=== PATIENT | female | born 1940 | race Caucasian/White ===

== ENCOUNTER → 2019-03-15 | Outpatient (CLI) | payer MEDICARE, OTHER | END | disposition home or self-care (01) | LOC: PLD 12:30 → LAB SHORT 12:30 | DX: L98.9 Disorder of the skin and subcutaneous tissue, unspecified (principal); B35.1 Tinea unguium | CPT/HCPCS: 88305 ==

== ENCOUNTER → 2019-04-19 | Outpatient (CLI) | payer MEDICARE, OTHER | END | disposition home or self-care (01) | LOC: PLD 12:10 → LAB SHORT 12:10 | DX: C44.622 Squamous cell carcinoma of skin of right upper limb, including shoulder (principal) | CPT/HCPCS: 88305 ==

== ENCOUNTER → 2019-05-07 | Outpatient (CLI) | payer MEDICARE, OTHER | END | disposition home or self-care (01) | LOC: PLD 08:10 → LAB SHORT 08:10 | DX: C44.622 Squamous cell carcinoma of skin of right upper limb, including shoulder (principal) | CPT/HCPCS: 88305 ==

== ENCOUNTER → 2019-06-20 | Outpatient (CLI) | payer MEDICARE, OTHER | LOC: LAB 14:30 → LAB SHORT 14:30 | DX: B35.1 Tinea unguium (principal) | CPT/HCPCS: 87102 ==

== ENCOUNTER 2019-08-29 10:51 | Day surgery (SDC) | payer MEDICARE, OTHER ==
[~2019-08-29] VITALS: Ht 157.5 cm; Wt 74.0 kg
[~2019-08-29 10:51] MED LIST: ASPI81CH PO; ENAL20 PO; HYDCHL25 PO
--- NOTE | 2019-08-29 14:09 | NUR ---
PT RETURNED TO RECOVERY ROOM IN BED. RIGHT FEMORAL GROIN SITE SOFT NON-TENDER WITH NO HEMATOMA, NO PULSATILE BLEEDING AND INTACT DRESSING. PT DENIES CHEST PAIN, CALL LIGHT IN REACH; PT DRINKING ORANGE JUICE. RIGHT DP DOPPLER.
--- NOTE | 2019-08-29 14:26 | NUR ---
NO CHANGE TO RIGHT GROIN SITE.
--- NOTE | 2019-08-29 14:47 | NUR ---
CLEO PLAVIX NEW MEDICATION CALLED TO [facility].
[2019-08-29] MEDS ORDERED: CLOP75 PO (14:54)
--- NOTE | 2019-08-29 17:26 | NUR ---
DISCHARGE PT REMAINED A&OX3 AND DENIED ANY PAIN DURING RECOVERY. PT UP TO RESTROOM AND DRESSED SLELF INDEPENDANTLY. R GROIN SITE REMAINS CDI NO HEMATOMA NOTED. IV DC'D WITH TIP IN TACT. DISCHARGE PAPERWORK GONE OVER WITH PT. PT VERBALLY STATED THE UNDERSTANDING OF THE DISCHARGE EDUCATION AND DENIED ANY QUESTIONS AT THIS TIME. NEW PRESCRIPTION CALLED INTO [facility]. PT WHEELED OUT BY THIS NURSE.
== END 2019-08-29 19:00 | disposition home or self-care (01) ==
LOC: MHTC 10:51
DX: I70.213 Atherosclerosis of native arteries of extremities with intermittent claudication, bilateral legs (principal); I10 Essential (primary) hypertension; M19.90 Unspecified osteoarthritis, unspecified site; Z87.891 Personal history of nicotine dependence; Z79.82 Long term (current) use of aspirin; Z79.899 Other long term (current) drug therapy
CPT/HCPCS: 37227; 37228; 37232; 75625; 75716; 75774; 85347; 93005; 93010; 99152; 99153; C1714; C1725; C1760; C1769; C1874; C1884; C1887; C1894; C2623; J1644; J2250; J3010; J7030; Q9967

== ENCOUNTER 2019-09-13 09:46 | Day surgery (SDC) | payer MEDICARE, OTHER ==
[~2019-09-13] VITALS: Ht 160 cm; Wt 162.0 kg
[~2019-09-13 09:46] MED LIST changes: +CLOP75 PO
--- NOTE | 2019-09-13 10:43 | NUR ---
Pt arrives with zio patch from previous procedure. Dr. Suggs will be managing pt. 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
--- NOTE | 2019-09-13 11:08 | NUR ---
Pt with a-fib, she has been seeing Dr. Suggs. Pt with zio patch and recent echo. Zio patch to be completed this 09/19/2019. Dr. Palacios notified orders for ekg and appointment with Cardiololgy for referral. Dr. Rivera has been requested to review EKG for consultation. Pt has had aspirin therapy off for the past two days. Appointment with Dr. Espitia for 26 Sep 2019 for office visit.
--- NOTE | 2019-09-13 12:42 | NUR ---
reviewed chart EKG will see Patient in office.
--- NOTE | 2019-09-13 18:17 | NUR ---
Received the pt from the [facility] just at 1800. She is alert, oriented, cooperative, and pleasantly cheerfully conversant. Left groin site is without bruising, bleeding, swelling, or hematoma. I am told in report that it was an angioseal closure. Tegederm over the site is clean, dry and intact. Right foot pedal area has a tegederm dressing over the access site, which shows small amount of bruising and evidence of scant bleeding but no active bleeding. She states that both of her feet have a tiny bit of tingling, but no numbness. spo2 100% measured on the left hand as well as the right foot. She has some mottling in both hands, and they are both cool to the touch, but pt denies pain/numbness/tingling in her hands. Vital signs are stable. Pt was assisted to turn on to her right side, and propped up with pillows. Instructions given to not flex her left leg and bedrest for 2 hours. She verbalized understanding of this.
--- NOTE | 2019-09-13 18:33 | NUR ---
No changes from prior assessments of distal pulses BLE as well as the left groin site. Pt appears to be sleeping, Vital signs stable.
--- NOTE | 2019-09-13 21:13 | NUR ---
UPDATE DR PALUMBO NOTIFIED OF PATIENT'S ELEVATED BLOOD PRESSURE AT THIS TIME. PATIENT REPORTS SHE USUALLY GETS ANXIETY IN HOSPITALS. DR PALUMBO AWARE OF LAST SEVERAL SETS OF BLOOD PRESSURES AND STATES IT IS FINE FOR PATIENT TO GO AHEAD AND GO HOME AT THIS TIME. ACCESS SITES SOFT WITH NOT SIGNS OF NEW BLEEDING OR BRUSING.
--- NOTE | 2019-09-13 21:50 | NUR ---
DISCHARGE PATIENT PROVIDED WITH DISCHARGE PAPERS AND EDUCATION. PATIENT DENIED ANY QUESTIONS. PATIENT'S ACCESS SITES REMANIN SOFT WITH NO NEW BLEEDING OR BRUISING. PULSES ASSESSED WITH VITAL SIGNS AND WERE PALPABLE. PATIENT LEFT VIA WHEELCHAIR WITH PCT AT APPROX 2134. PATIENT'S WAITING IN PARKING LOT TO DRIVE PATIENT HOME.
== END 2019-09-13 21:30 | disposition home or self-care (01) ==
LOC: MHTC 09:46 → PCU 16:37 → MHTC 21:30
DX: I70.213 Atherosclerosis of native arteries of extremities with intermittent claudication, bilateral legs (principal); I10 Essential (primary) hypertension; Z87.891 Personal history of nicotine dependence; Z79.82 Long term (current) use of aspirin; Z79.899 Other long term (current) drug therapy
CPT/HCPCS: 36140; 37228; 37232; 75625; 75716; 75774; 76937; 85347; 93005; 93010; 99152; 99153; C1725; C1760; C1769; C1887; C1894; J1644; J2250; J3010; J7030; Q9967

== ENCOUNTER → 2019-09-25 | Outpatient (CLI) | payer MEDICARE, OTHER | END | disposition home or self-care (01) | LOC: LAB SHORT 12:45 → PLD 12:45 | DX: L57.0 Actinic keratosis (principal) | CPT/HCPCS: 88305 ==

== ENCOUNTER 2020-04-15 09:44 | Day surgery (SDC) | payer MEDICARE, OTHER ==
[~2020-04-15] VITALS: Ht 160 cm; Wt 75.0 kg
[~2020-04-15 09:44] MED LIST changes: +ATEN25 PO; +Crestor20 MG PO; +ELIQUIS5 M2 PO; +PROTONIX40 M1 PO
--- NOTE | 2020-04-15 11:02 | NUR ---
DR. PALUMBO IN TO SEE PATIENT.
--- NOTE | 2020-04-15 15:05 | NUR ---
[id number] PATIENT TRANSFERED TO RECOVERY AND STAFF NURSE FAVIAN REMAINED WITH THE PATIENT. PATIENT PLACED ON THE MONITOR AND CALL LIGHT IN REACH. DIET ORDERED. IVF AT 125 ML/HR AND HOB FLAT. POST ORDERS REVIEWED. RFA GROIN SITE WITH DRESSING CDI. RDP AND RPT +1, LDP AND LPT DOPPLER ONLY. NO PAIN NOTED FROM THE PATIENT BUT LEFT FOOT IS TENDER TO TOUCH. NC IN PLACE AND CONTINUE TO WEAN TOLERATED.
--- NOTE | 2020-04-15 16:08 | NUR ---
PATIENT HOB UP 20 DEGREES. WATCHING TV, REFUSES MEAL AT THIS TIME. CALL LIGHT IN REACH. RFA SITE UNCHANGED AND DISTAL PULSEES UNCHANGED. SR UP X 2. PATIENT SPOKE TO VIA PHONE AND PLANNING DISCHARGE AT 1800.
--- NOTE | 2020-04-15 17:38 | NUR ---
PATIENT UP TO THR RESTROOM WITH ASSISTANCE. GAIT STEADY WITH PAIN TO THE LEFT FOOT. UNCHANGED SINCE PRIOR TO PROCEDURE. NO BLEEDING NOTED. GROIN SITE STABLE. BACK TO BEDSIDE AND REVIEWED DISCHARGE INSTRUCTIONS. ALL QUESTIONS ANSWERED.
--- NOTE | 2020-04-15 17:46 | NUR ---
PATIENT UP AND DRESSED. PIV REMOVED AND CATHETER TIP INTACT. REVIEWED ENTIRE DISCHARGE PACKET. DR. PALUMBO AT THE BEDSIDE AND SPOKE WITH THE PATIENT. ALL QUESTIONS ANSWERED. WHEELCHAIRED TO HOPSITAL ENTRANCE AND DISCHARGED HOME WITH ALL BELONHINGS TO VIA PRIVATE VEHICLE.
== END 2020-04-15 22:36 | disposition home or self-care (01) ==
LOC: MHTC 09:44
DX: I70.213 Atherosclerosis of native arteries of extremities with intermittent claudication, bilateral legs (principal); I10 Essential (primary) hypertension; M19.90 Unspecified osteoarthritis, unspecified site; Z87.891 Personal history of nicotine dependence; Z79.01 Long term (current) use of anticoagulants; Z79.02 Long term (current) use of antithrombotics/antiplatelets; Z79.82 Long term (current) use of aspirin; Z79.899 Other long term (current) drug therapy
CPT/HCPCS: 36140; 37225; 37229; 37232; 75625; 75716; 75774; 76937; 85347; 99152; 99153; C1714; C1725; C1760; C1769; C1884; C1887; C1894; C2623; J1644; J2250; J3010; J7030; J7050; Q9967

== ENCOUNTER 2020-12-08 06:21 | Day surgery (SDC) | payer MEDICARE, OTHER ==
[~2020-12-08] VITALS: Ht 160 cm; Wt 71.0 kg
[~2020-12-08 06:21] MED LIST changes: +Amlodipine Bes2.5 MG PO
--- NOTE | 2020-12-08 10:10 | NUR ---
PT RETURNED TO RECOVERY ROOM VIA GURNEY, RIGHT GROIN SITE APPEARS TO BE SOFT NON TENDER WITH NO ACTIVE BLEEDING, OOZING, OR PAIN NOTED. DRESSING C/D/I. PT DENIES PAIN. TOLERATES PO FLUIDS WITH NO DIFFICULTIES. WILL CONTINUE TO MONITOR. PT PROVIDED WITH HER CELL PHONE TO CALL AND UPDATE .
--- NOTE | 2020-12-08 12:00 | NUR ---
PT AMBULATES TO RESTROOM WITH STEADY GAIT. RIGHT GROIN SITE REMAINS STABLE, DRESSING INTACT, NO SIGNS OF BLEEDING OR OOZING. RETURNS TO [facility] WITH NO COMPLAINTS. CALL LIGHT IN REACH.
--- NOTE | 2020-12-08 13:00 | NUR ---
PROVIDED PT WITH MEAL TRAY, SITTING AT 90 DEGREES, RIGHT GROIN SITE SOFT , NON TENDER WITH NO BLEEDING OR OOZING.
--- NOTE | 2020-12-08 13:00 | NUR ---
DR. LUTZ SHOWN A RHYTHM STRIP WITH A 3 SECOND PAUSE. MD STATES TO HAVE PT DECREASE HER ATENOLOL DOSE FROM 25MG TO 12.5MG DAILY.
--- NOTE | 2020-12-08 13:29 | NUR ---
DISCHARGE PT AMBULATED AND DRESSED SELF WITH NO COMPLICATIONS. PTS R FEMORAL SITE WITH NO BLEEDING, OOZING OR HEMATOMA NOTED. PT DENIES ANY PAIN AT SITE. ZIO PATCH PLACED ON PT BY BAKER PASTRY. PT EDUCATED TO PRESS THE BUTTON ON THE ZIO PATCH IF SHE FEELS, DIZZY, LIGHT HEADED, FATIGUED, NAUSEOUS, SOB OR ANY CP. PT STATES HER UNDERSTANDING. PT ALSO INFORMED TO DECREASE HER ATENOLOL DOSE TO 12.5MG DAILY. PT EDUCATED TO TAKE HER PULSE PRIOR TO TAKING THIS MEDICATION AND IF HER PULSE IS BELOW 60 TO HOLD THE MEDICATION. PT STATES HER UNDERSTANDING. PT STATES HER UNDERSTANDING OD DC AND SITE CARE INSTRUCTIONS AND DENIES ANY QUESTIONS OR CONCERNS. IV WAS DC'D WITH CATH INTACT. PT TAKEN VIA WHEELCHAIR TO EXIT WHERE WAS WAITING WITH VEHICLE.
== END 2020-12-08 13:20 | disposition home or self-care (01) ==
LOC: MHTC 06:21
DX: I70.223 Atherosclerosis of native arteries of extremities with rest pain, bilateral legs (principal); I10 Essential (primary) hypertension; M19.90 Unspecified osteoarthritis, unspecified site; I48.91 Unspecified atrial fibrillation; Z79.01 Long term (current) use of anticoagulants; Z79.02 Long term (current) use of antithrombotics/antiplatelets; Z87.891 Personal history of nicotine dependence; Z88.8 Allergy status to other drugs, medicaments and biological substances
CPT/HCPCS: 37184; 37185; 37224; 37228; 37232; 75716; 75774; 76937; 85347; 93242; 99152; 99153; C1725; C1760; C1769; C1887; C1894; C2623; J2250; J3010; J7030; J7050; Q9967

== ENCOUNTER 2021-06-03 06:13 | Day surgery (SDC) | payer MEDICARE, OTHER ==
[~2021-06-03] VITALS: Ht 157.5 cm; Wt 72.6 kg
--- NOTE | 2021-06-03 12:00 | NUR ---
PATIENT HOB UP 30 DEGREES. EATING LUNCH.
--- NOTE | 2021-06-03 13:05 | NUR ---
patient up and bedside and ambulated to rest room. right groin site unchanged
--- NOTE | 2021-06-03 13:30 | NUR ---
Patient verbalized understanding of discharge instructions and precautions. Right groin remains soft and nontender. No bleeding. No hematoma. IV site dc'ed with catheter intact. Patient had no further questions.. Taken via wheel chair to car with waiting to drive her home.
== END 2021-06-03 13:30 | disposition home or self-care (01) ==
LOC: MHTC 06:13
DX: I70.213 Atherosclerosis of native arteries of extremities with intermittent claudication, bilateral legs (principal); I10 Essential (primary) hypertension
CPT/HCPCS: 76937; 99152; 99153; C1725; C1760; C1769; C1887; C1894; C2623; J1644; J2250; J2997; J3010; J7030; Q9967

== ENCOUNTER 2021-06-24 10:10 | Day surgery (SDC) | payer MEDICARE, OTHER ==
[~2021-06-24] VITALS: Ht 157.5 cm; Wt 73.0 kg
[~2021-06-24 10:10] MED LIST changes: +PANT40 PO
--- NOTE | 2021-06-24 18:13 | NUR ---
FOLLOWED PATIENT TO RECOVERY ROOM FROM PROCEDURE. L GROINN SITE STABLE WITH SUCCESSFUL ANGIOSEAL AND R DP SITE STABLE. R FOOT WARM TO TOUCH AND HAS GOOD CMS. L FOOT WARM TO TOUCH WITH GOOD CMS.
--- NOTE | 2021-06-24 18:40 | NUR ---
UP TO BATHROOM, PT WITH SHIVERS BUT STATES SHE DOESN'T FEEL COLD. BOTH ACCESS SITES STABLE AFTER COMING BACK FROM BATHROOM.
--- NOTE | 2021-06-24 18:57 | NUR ---
DISCHARGE INSTRUCTIONS REVIEWED WITH PT, VERBALIZES UNDERSTANDING OF INSTRUCTIONS. CALLED AND NOTIFIED OF DISCHARGE TIME. SALINE LOCK REMOVED WITH CATHETER INTACT. PT GETTING DRESSED PER SELF AT THIS TIME.
--- NOTE | 2021-06-24 19:18 | NUR ---
PT TO PRIVATE VEHICLE PER W/C WITH ONE STAFF.
== END 2021-06-24 19:15 | disposition home or self-care (01) ==
LOC: MHTC 10:10
DX: I70.223 Atherosclerosis of native arteries of extremities with rest pain, bilateral legs (principal); I73.9 Peripheral vascular disease, unspecified; I10 Essential (primary) hypertension; Z87.891 Personal history of nicotine dependence
CPT/HCPCS: 76937; 85347; 99152; 99153; C1724; C1725; C1760; C1769; C1874; C1887; C1894; J0360; J1644; J2250; J3010; J7030; J7050; Q9967

== ENCOUNTER → 2022-06-01 | Outpatient (CLI) | payer MEDICARE, OTHER | END | disposition home or self-care (01) | LOC: LAB SHORT 12:52 → LAB 12:52 | DX: L60.2 Onychogryphosis (principal); B35.1 Tinea unguium | CPT/HCPCS: 87102; 87106 ==

== ENCOUNTER 2022-10-06 08:48 | Day surgery (SDC) | payer MEDICARE, OTHER ==
[2022-10-06] VITALS (10 sets, daily range): BP systolic 113–197; BP diastolic 55–82
[~2022-10-06] VITALS: Ht 160 cm; Wt 74.0 kg
[~2022-10-06 08:48] MED LIST changes: +ENAL10 PO; -ENAL20 PO
--- NOTE | 2022-10-06 13:15 | NUR ---
PATIENT ARRIVED TO RECOVERY ROOM LAYING FLAT IN BED. R GROIN SITE C/D/I SOFT/NONTENDER, NO EVIDENCE OF HEMATOMA. VSS STABLE ON ROOM AIR.
--- NOTE | 2022-10-06 15:30 | NUR ---
PATIENT SITTING UPRIGHT IN BED. PATIENT TOLERATING PO INTAKE WELL. R GROIN SITE C/D/I SOFT/NONTENDER, NO EVIDENCE OF BLEEDING. VSS ON ROOM AIR.
--- NOTE | 2022-10-06 16:28 | NUR ---
PATIENT AMBULATING AND VOIDING TO RESTROOM WITHOUT DIFFICULTY. R GROIN SITE C/D/I SOFT/NONTENDER, NO EVIDENCE OF BLEEDING. DISCHARGE INSTRUCTIONS REVIEWED WITH PATIENT. VSS ON ROOM AIR.
--- NOTE | 2022-10-06 16:30 | NUR ---
PATIENT DISCHARGED HOME AT THIS TIME. PIV REMOVED WITHOUT DIFFICULTY, CATHETER INTACT. R GROIN SITE C/D/I SOFT/NONTENDER. VSS ON ROOM AIR. PATIENT WHEELED TO HOSPITAL ENTRANCE, PATIENTS SPOUSE ABLE TO TRANSPORT PATIENT HOME. ALL PATIENT BELONGINGS AND PAPERWORK LEFT WITH PATIENT.
== END 2022-10-06 16:30 | disposition home or self-care (01) ==
LOC: MHTC 08:48
DX: I70.223 Atherosclerosis of native arteries of extremities with rest pain, bilateral legs (principal); I83.92 Asymptomatic varicose veins of left lower extremity; I48.19 Other persistent atrial fibrillation; I10 Essential (primary) hypertension; Z87.891 Personal history of nicotine dependence; Z79.01 Long term (current) use of anticoagulants; Z79.899 Other long term (current) drug therapy
CPT/HCPCS: 76937; 85347; 99152; 99153; C1714; C1725; C1760; C1769; C1887; C1894; C2623; J0360; J1644; J2250; J3010; J7030; J7050; Q9967